=== PATIENT | female | born 1990 | race Caucasian/White ===

== ENCOUNTER 2020-03-08 03:18 | Emergency (ER) | payer BC ==
[~2020-03-08] VITALS: Ht 160 cm; Wt 46.7 kg
--- NOTE | 2020-03-08 03:24 | NUR ---
PT CAME IN C/O BURNING MIDSTERNAL CHEST PAIN RADIATING TO THE L ARM SINCE YESTERDAY UPON WAKING UP. PAIN IST AT 4/10. PT AAOX4, HR ELEVATED AT 110, RESPIRATIONS EVEN AND UNLABORED ON RA W/ NAD NOTED. 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
[2020-03-08] MEDS ORDERED: MAG HYDROX/AL HYDROX/SIMETH 30 ML UDC ONE (03:57)
[2020-03-08] MEDS ORDERED: LIDOCAINE VISCOUS 2% UD 15 ML UDC ONE (03:57)
[2020-03-08] MEDS ORDERED: MAG HYDROX/AL HYDROX/SIMETH 30 ML UDC PO ONE (04:00)
[2020-03-08] MEDS ORDERED: LIDOCAINE VISCOUS 2% UD 15 ML UDC MM ONE (04:00)
[2020-03-08] MEDS ORDERED: FAMOTIDINE (20 MG) 20 MG TABLET PO ONE (04:00)
[2020-03-08] MEDS ORDERED: FAMOTIDINE (20 MG) 20 MG TABLET ONE (04:07)
[2020-03-08 04:14] LABS: BASOPHILS % (AUTO) 0.6 % (0.0-2.0); EOSINOPHILS % (AUTO) 1.5 % (0.0-6.0); HEMATOCRIT 39 % (33-45); HEMOGLOBIN 13.1 g/dL (11.5-14.8); LYMPHOCYTES # (AUTO) 1.8 /CMM (0.8-4.8); LYMPHOCYTES % (AUTO) 32.6 % (20.0-44.0); MEAN CORPUSCULAR HGB CONC 34 g/dl (31.0-36.0); MEAN CORPUSCULAR VOLUME 88 fL (82-100); MONOCYTES # (AUTO) 0.3 /CMM (0.1-1.30); MONOCYTES % (AUTO) 6.3 % (2.0-12.0); NEUTROPHILS # (AUTO) 3.2 /CMM (1.8-8.9); PLATELET COUNT (AUTO) 249 /CMM (150-450); RED BLOOD CELL COUNT(AUTO) 4.43 MIL/uL (4.0-5.2); WHITE BLOOD COUNT (AUTO) 5.4 K/uL (4.3-11.0)
[2020-03-08 04:44] LABS: CARBON DIOXIDE 28 mmol/L (21-32); CHLORIDE 102 mmol/L (98-107); CREATININE 0.9 mg/dL (0.6-1.3); GLUCOSE 95 mg/dL (74-106); POTASSIUM 3.4 mmol/L (3.5-5.1); SODIUM SERUM 139 mmol/L (136-145); UREA NITROGEN, BLOOD 7 mg/dL (7-18)
[2020-03-08 05:00] LABS: ALANINE AMINOTRANSFERASE 21 U/L (12-78); ALKALINE PHOSPHATASE 36 U/L (46-116); ASPARTATE AMINOTRANSFERASE 16 U/L (15-37); BILIRUBIN,DIRECT 0.2 mg/dL (0.0-0.2); BILIRUBIN,TOTAL 0.7 mg/dL (0.2-1.0); TOTAL PROTEIN, SERUM 7.1 g/dL (6.4-8.2)
--- NOTE | 2020-03-08 05:22 | NUR ---
PT RESTING IN BED COMFORTABLY. NO MEDICAL COMPLAINTS AT THIS TIME. NO ACUTE DISTRESS NOTED.
[2020-03-08 06:03] VITALS: BP 118/76
--- NOTE | 2020-03-08 06:03 | NUR ---
Patient discharged to home in stable condition. Written and verbal after care instructions given. Patient verbalizes understanding of instruction.
== END 2020-03-08 06:04 | disposition home or self-care (01) ==
LOC: ER 03:24
DX: R07.89 Other chest pain (principal)
CPT/HCPCS: 36415; 71045-TC; 80048-TC; 80076-TC; 84484-TC; 84702-TC; 85025-TC; 85378-TC